=== PATIENT | male | born 1945 | race Caucasian/White ===

== ENCOUNTER 2019-05-02 05:18 | Inpatient (IN) ==
--- NOTE | 2019-04-03 08:34 | PAT Medication Instructions ---
Medication Instructions Date of Service April 03, 2019 Home Medications albuterol sulfate 1 puff INHALATION Q6H PRN celecoxib 200 mg PO BID cholecalciferol (vitamin D3) 4,000 unit PO BID ezetimibe 10 mg PO QAM finasteride 5 mg PO QPM lactobacillus combination no.4 3,000 mmu cells PO QPM loratadine [Claritin] 10 mg PO QPM ranitidine HCl 150 mg PO BID ASK your surgeon for instructions celecoxib 200 mg PO BID Take morning of surgery With a small sip of water, OTHERWISE NOTHING TO EAT OR DRINK AFTER MIDNIGHT: albuterol sulfate 1 puff INHALATION Q6H PRN (use if needed; please bring with you to hospital day of surgery if possible) ezetimibe 10 mg PO QAM Take evening before surgery albuterol sulfate 1 puff INHALATION Q6H PRN (if needed) cholecalciferol (vitamin D3) 4,000 unit PO BID finasteride 5 mg PO QPM lactobacillus combination no.4 3,000 mmu cells PO QPM loratadine [Claritin] 10 mg PO QPM ranitidine HCl 150 mg PO BID Other Notes If you have any questions please call us at [phone] or [phone] or [phone] or [phone]
--- NOTE | 2019-04-03 11:44 | Anesthesiology Consultation ---
Date of Service April 03, 2019 Assessment & Plan (1) Encounter for pre-operative examination: - PCP: 04/13/19: "Pt medically cleared for surgery. Monitor for any signs of recurrent c. diff." Chart Review Chart Review: Acceptable Risk for Surgery and Patient seen in Pre Admission Testing Teaching & Discussion Pre-Anesthesia Teaching/Discussion Notes: Instructed NPO after midnight before surgery,except medications with 15 cc of water. Medication instructions provided according to the PAT guidelines. History Surgery Operation Date: 05/02/19 07:15 Proposed Procedures p Right Anterior Approach Total Hip Arthroplasty - Renny Leslie DO Height/Weight Height: 5 ft 11 in Weight: 105.6 kg Allergies Allergy/AdvReac Type Severity Reaction Status Date / Time Sulfa (Sulfonamide Allergy Severe HYPOTENSION Verified 04/03/19 11:38 Antibiotics) AND HIVES Medications Home Medications Medication Instructions Recorded Confirmed Last Taken albuterol sulfate 1 puff INHALATION Q6H PRN 03/27/19 03/27/19 Unknown celecoxib 200 mg PO BID 03/27/19 03/27/19 Unknown cholecalciferol (vitamin D3) 4,000 unit PO BID 03/27/19 03/27/19 Unknown [Vitamin D3] ezetimibe 10 mg PO QAM 03/27/19 03/27/19 Unknown finasteride 5 mg PO QPM 03/27/19 03/27/19 Unknown lactobacillus combination no.4 3,000 mmu cells PO QPM 03/27/19 03/27/19 Unknown [Probiotic] loratadine [Claritin] 10 mg PO QPM 03/27/19 03/27/19 Unknown ranitidine HCl 150 mg PO BID 03/27/19 03/27/19 Unknown Past Medical History Medical History BPH (benign prostatic hyperplasia) DJD (degenerative joint disease) Diverticular disease Hearing deficit History of kidney stones Hyperlipidemia 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; NO RECENT ISSUES- INHALER PRN Exercise / Class Metabolic Activity III < 4 Walking/Shop/Light housework Past Surgical History Surgical History History of cardiac cath 2008= NO STENTS History of cataract surgery BOTH EYES History of cholecystectomy History of left hip replacement Hx of cystoscopy Past Anesthesia History No Hx of Anesthesia Complications and No Family Hx of Anesthesia Complications History of PONV No Hx of Motion Sickness and History of PONV (FELT NARCOTIC RELATED PER PATIENT) Social History Smoking Status: Former smoker Do You Dip or Chew Tobacco: No Smoking End Date: QUIT 1993; HX 1PPD X 15 YEARS Hx Alcohol Use: No Hx Substance Use: No Review of Systems Patient reports low back pain/hip pain; no LE radiation. Patient denies chest pain, shortness of breath, cough, wheezing, palpitations. Physical Exam Vital Signs VITALS BP 124/85 P 89 TEMP 98.4 SP02 94%RA RESP 18 PHYSICAL Full neck and c-spine range of motion. Full TMJ range of motion. TMD 3.5 finger breaths Mallampati Score 3 Dentition: lower two front teeth and several sides/molars missing Lungs: very mild expiratory wheezes in upper lungs Cardiac: regular rate and rhythm, no murmurs noted Spine: normal Carotid arteries: negative bruit Extremities: no edema Short turpin-- advised to trim (patient voiced understanding) Testing Electrocardiogram Date: 04/03/19 NSR at 83bpm. NS STA. Chest X-Ray Date: 04/03/19 Findings: + NAD Calcified mediastinal and hilar lymph nodes likely on a postinflammatory basis. No active disease in the chest. Laboratory Results 04/03/19 11:51 04/03/19 11:51 PT 10.6 Seconds (9.0-12.0) 04/03/19 11:51 INR 1.0 (0.9-1.1) 04/03/19 11:51 APTT 26.7 Seconds (21.0-31.0) 04/03/19 11:51 5.6 % (4.5-5.6) 04/03/19 11:51 Yellow 04/03/19 Unknown Clear (Clear) 04/03/19 Unknown 5.0 (4.5-7.5) 04/03/19 Unknown Ur Specific [place] 1.023 (1.000-1.030) 04/03/19 Unknown Trace (Negative) H 04/03/19 Unknown Negative (Negative) 04/03/19 Unknown Negative (Negative) 04/03/19 Unknown Negative (Negative) 04/03/19 Unknown Ur Leukocyte Esterase Negative (Negative) 04/03/19 Unknown 1-5 /hpf (0-5) 04/03/19 Unknown 5-10 /hpf (0-4) H 04/03/19 Unknown U Hyaline Cast (Auto) 1-5 /lpf (0-5) 04/03/19 Unknown U Epithel Cells (Auto) 10-20 /lpf (0-5) H 04/03/19 Unknown Negative (Negative) 04/03/19 Unknown Blood Type A Positive 04/03/19 11:51 Antibody Screen NEGATIVE 04/03/19 11:51 Due to header error, following labs header labels were missin04/03/19 HGBA1C 5.6% UA negative bacteria
--- NOTE | 2019-04-03 12:31 | XRay Report ---
XR chest Pre-admission PA/Lat CLINICAL HISTORY: Preoperative chest COMPARISON STUDY: No previous studies for comparison. FINDINGS: The heart is normal in size. There is no failure. There are no pleural effusions. There is no focal pulmonary consolidation. There are extensive eggshell calcified mediastinal and hilar lymph nodes.[ IMPRESSION: 1. Calcified mediastinal and hilar lymph nodes likely on a postinflammatory basis 2. No active disease in the chest. Electronically signed by: Héctor Fuentes M.D. 04/03/2019 12:30 PM
[2019-04-03 12:51] LABS: Basophils # (auto) 0.02 K/uL (0-0.2); Basophils % (auto) 0.3 %; Eosinophils # (auto) 0.37 K/uL (0-0.5); Hematocrit (blood only) 44.4 % (42-52); Hemoglobin 15.3 g/dL (14.0-18.0); Immature Granulocytes # (auto) 0.02 K/uL (0.00-0.02); Immature Granulocytes % (auto) 0.3 %; Lymphocytes # (auto) 1.53 K/uL (1.2-3.4); Lymphocytes % (auto) 24.8 %; Mean Corpuscular Hgb Conc 34.5 g/dL (32-36); Mean Corpuscular Volume 90.1 fL (80-100); Mean Platelet Volume 9.4 fL (7.4-10.4); Monocytes # (auto) 0.87 K/uL (0.11-0.59); Monocytes % (auto) 14.1 %; Neutrophils # (auto) 3.35 K/uL (1.4-6.5); Neutrophils % (auto) 54.5 %; Platelet Count 205 K/uL (130-400); RDW Coefficient of Variation 13.5 % (11.5-14.5); RDW Standard Deviation 44.2 fL (36.4-46.3); Red Blood Count 4.93 M/uL (4.7-6.1); White Blood Count 6.16 K/uL (4.8-10.8)
[2019-04-03 12:54] LABS: Appearance Urine Clear (Clear); Bacteria Urine Automated Negative (Negative); Bilirubin Urine Negative (Negative); Blood Urine 2+ (Negative); Color Urine Yellow; Glucose Urine UA Negative (Negative); Ketones Urine Negative (Negative); Leukocyte Esterase Urine Negative (Negative); Nitrite Urine Negative (Negative); Protein Urine Trace (Negative); Specific Gravity Urine 1.023 (1.000-1.030); Urobilinogen Urine Negative (Negative)
[2019-04-03 13:01] LABS: Partial Thromboplastin Time 26.7 Seconds (21.0-31.0); Prothrombin Time 10.6 Seconds (9.0-12.0)
[2019-04-03 13:12] LABS: Estimated Average Glucose 114 mg/dl; Hemoglobin A1C 5.6 % (4.5-5.6)
[2019-04-03 14:14] LABS: Albumin Level 3.6 gm/dl (3.4-5.0); BUN Creatinine Ratio 11.8 (10-20); Calcium 9.5 mg/dl (8.5-10.1); Creatinine Clr Calc Pharmacy 76.2 ml/min; Est GFR (African American) 77.9; Est GFR (Non-African American) 67.2; Potassium 4.1 mmol/L (3.5-5.1)
--- NOTE | 2019-04-30 17:13 | History & Physical Report ---
Date of Service April 30, 2019 Assessment & Plan (1) Degenerative joint disease of right hip: I have indicated the patient for right anterior total hip replacement. The risks, benefits and complications of surgery were explained to the patient which include but not limited to infection, acute blood loss, DVT/PE, injury to nerves, vessels, bone, soft tissue, arthrofibrosis, chronic pain, failure of the prosthesis, hip dislocation, leg length discrepancy, need for additional surgery, cardiac and pulmonary events and . The patient wished to proceed with surgery and informed consent was obtained at this time. We will plan for ASA BID post-operatively for DVT prophylaxis. Upon discharge the patient will be discharged home with home health services. Appropriate clearances by PCP were obtained. History of Present Illness Chief Complaint: Right hip pain/DJD Primary Care Provider: CHRYSTAL PCP The patient is a 73 year old male who presents with complaints of severe right hip pain and DJD. The patient has failed outpatient conservative treatments to this point which included NSAIDs, corticosteroid injection, home exercise/walking program. The patient's pain and limited function have progressed to the point where they severely hinder their activities of daily living and they no longer tolerate exercise programs. They are requesting to proceed with total hip replacement surgery. Allergies Allergy/AdvReac Type Severity Reaction Status Date / Time Sulfa (Sulfonamide Allergy Severe HYPOTENSION Verified 05/02/19 05:50 Antibiotics) AND HIVES Home Medications Home Medications Medication Instructions Recorded Confirmed Type albuterol sulfate 1 puff INHALATION Q6H PRN 03/27/19 05/02/19 History celecoxib 200 mg PO BID 03/27/19 05/02/19 History cholecalciferol (vitamin D3) 4,000 unit PO BID 03/27/19 05/02/19 History [Vitamin D3] ezetimibe 10 mg PO QAM 03/27/19 05/02/19 History finasteride 5 mg PO QPM 03/27/19 05/02/19 History lactobacillus combination no.4 3,000 mmu cells PO QPM 03/27/19 05/02/19 History [Probiotic] loratadine [Claritin] 10 mg PO QPM 03/27/19 05/02/19 History ranitidine HCl 150 mg PO BID 03/27/19 05/02/19 History Past Med/Surg History Medical History BPH (benign prostatic hyperplasia) DJD (degenerative joint disease) Diverticular disease Hearing deficit History of kidney stones Hyperlipidemia 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; NO RECENT ISSUES- INHALER PRN Surgical History History of cardiac cath 2009= NO STENTS History of cataract surgery BOTH EYES History of cholecystectomy History of left hip replacement Hx of cystoscopy Social History Preferred Language: Afghan Communication Ability: Effective Beliefs That Will Affect Care: None Current Living Situation: Significant Other Feels Safe at Home: Yes Safety Concerns: Feels Safe At This Time Smoking Status: Former smoker Do You Dip or Chew Tobacco: No Smoking End Date: QUIT 1993; HX 1PPD X 15 YEARS Second Hand Exposure: No Hx Alcohol Use: No Hx Substance Use: No Review of Systems Review of Systems: All systems reviewed & are unremarkable except as noted in HPI & below Constitutional: as per Subjective / HPI Physical Exam Physical Exam: RLE NVSI +EHL/FHL/TA/GS SILT grossly, +2 DP pulse, compartments soft NT, limited painful ROM, antalgic gait. Constitutional: WD/WN, vitals as above Eyes: PERRL, conjunctivae normal, anicteric sclerae ENMT: external ear and nose normal, oropharynx normal Neck: trachea midline, no thyromegaly Respiratory: normal respiratory effort, lungs clear to auscultation Cardiovascular: RRR, no murmur, no edema Gastrointestinal (Abdomen): normal bowel sounds, soft, nontender, no hepatosplenomegaly Musculoskeletal: no cyanosis or clubbing, extremities motor strength 5/5 Skin: no rashes, warm and dry Neurologic: patellar DTR's 2+ bilat, sensation intact Psychiatric: A+Ox3, euthymic affect Lymphatic: no cervical or axillary lymphadenopathy Results & Data Diagnostic Findings Multiple views of the hip demonstrates severe DJD with complete loss of the joint space. +osteophytes, +sclerosis, +subchondral cysts.
[2019-05-02] MEDS ORDERED: CEFAZOLIN 2000MG 2,000 MG/15 ML SYR IV SCH (06:00)
[2019-05-02] MEDS ORDERED: dexAMETHasone 4 MG TAB PO SCH (06:00)
[2019-05-02] MEDS ORDERED: FAMOTIDINE 20 MG TAB PO SCH (06:00)
[2019-05-02] MEDS ORDERED: ACETAMINOPHEN 500 MG TAB PO SCH (06:00)
[2019-05-02] MEDS ORDERED: TRANEXAMIC ACID 1,000 MG **IV Pre-op IV SCH (06:00)
[2019-05-02] MEDS ORDERED: GABAPENTIN 300 MG PO SCH (06:00)
[2019-05-02] MEDS ORDERED: ROPIVACAINE 0.5% HCL/PF 150 MG, BUPIVACAINE 0.5% MPF 30 ML, EPINEPHrine 30MG/30ML (OR U... INFIL SCH (06:00)
[2019-05-02] MEDS ORDERED: LR 500ML BOLUS, THEN 15ML/HR IV SCH (06:00)
[2019-05-02] MEDS ORDERED: METOCLOPRAMIDE HCL 10 MG TABLET PO SCH (06:00)
[2019-05-02] MEDS ORDERED: BUPIVACAINE 0.5 % 5 MG/1 ML PF 10ML VIAL ONE (06:28)
[2019-05-02] MEDS ORDERED: MIDAZOLAM HCL 1 MG/ML 2ML VIAL ONE (06:28)
[2019-05-02] MEDS ORDERED: KETAMINE HCL INJ 50 MG/ML 10 ML VIAL ONE (06:29)
[2019-05-02] MEDS ORDERED: TRANEXAMIC ACID 1,000 MG **IV Intra-op IV SCH (06:30)
[2019-05-02] MEDS ORDERED: ONDANSETRON INJ 2 MG/ML 2 ML VIAL ONE (06:39)
[2019-05-02] MEDS ORDERED: PROPOFOL IV EMULSION 10 MG/ML 20 ML VIAL IV ONE ×5 (06:39→10:12)
[2019-05-02] MEDS ORDERED: DEXAMETHASONE SOD INJ 4 MG/ML VIAL ONE (06:39)
[2019-05-02] MEDS ORDERED: LIDOCAINE HCL 2% 2 ML VIAL/AMP(20MG/ML) INFIL ONE (06:39)
[2019-05-02] MEDS ORDERED: GLYCOPYRROLATE 0.2 MG/ML VIAL ONE (06:39)
[2019-05-02] MEDS ORDERED: ORTHO JOINT ANESTHETIC ONE (07:00)
[2019-05-02] MEDS ORDERED: BACITRACIN INJ 50,000 UNIT VIAL ONE (07:00)
[2019-05-02] MEDS ORDERED: POVIDONE-IODINE OP SOLN 30 ML BTL ONE (07:00)
--- NOTE | 2019-05-02 07:01 | History & Physical Bridge Note ---
Date of Service May 02, 2019 History & Physical Bridge Note I have examined the patient, reviewed the History & Physical and in the interval since the performance of the History & Physical I have noted the following changes of clinical significance: no changes noted
[2019-05-02] MEDS ORDERED: ePHEDrine sulfate 50 MG/ML AMP IV PRN (07:50)
[2019-05-02] MEDS ORDERED: ATROPINE SULFATE 0.1 MG/ML 10ML SYR IV PRN (07:50)
[2019-05-02] MEDS ORDERED: HYDROmorphone INJ 1 MG/ML SYRINGE IV PRN (07:50)
--- NOTE | 2019-05-02 09:57 | Post Operative Brief Note ---
Immediate Post Op Note v1 Date of Surgery May 02, 2019 Pre & Post Diagnosis Operation Date: 05/02/19 07:40 Pre-Op Diagnosis: Unilateral Primary Osteoarthritis, Right Hip Post-Op Diagnosis: Unilateral Primary Osteoarthritis, Right Hip Procedure Operation Date: 05/02/19 07:40 Actual Procedures p Right Anterior Approach Total Hip Arthroplasty(Right) - Renny Leslie DO Surgeon Renny Leslie DO Business Development Officer Elbert Vicente Estimated Blood Loss 75 Findings Consistent with Post-Op Diagnosis Fluids 1800 cc LR Specimens femoral head Anesthesia Type Spinal MAC Disposition Disposition: Recovery Room Overlapping Procedure I was present for: the critical portions of procedure. I was immediately available: during the entire case. Back up surgeon: was not required during procedure.
--- NOTE | 2019-05-02 10:12 | Operative Report ---
Post Operative Report Pre & Post Diagnosis Operation Date: 05/02/19 07:40 Pre-Op Diagnosis: Unilateral Primary Osteoarthritis, Right Hip Post-Op Diagnosis: Unilateral Primary Osteoarthritis, Right Hip Procedure Operation Date: 05/02/19 07:40 Actual Procedures p Right Anterior Approach Total Hip Arthroplasty(Right) - Renny Leslie DO Surgeon Renny Leslie DO Psychologist Educational Elbert Vicente Estimated Blood Loss 75 Findings Consistent with Post-Op Diagnosis Fluids 1800 cc LR Specimens Femoral head Anesthesia Type Spinal MAC Complications none Disposition Disposition: Recovery Room Indications The patient is a 73-year-old male who presents with severe progressive right hip DJD who has failed outpatient conservative treatments. I indicated the patient for a anterior total hip replacement and the risks and benefits were explained in detail which include but not limited to infection, bleeding, blood clot, damage to surrounding bone, nerves, vessels, soft tissue, hip dislocation, failure of the prosthesis, leg length discrepancy, need for additional surgery and . The patient agreed to proceed with replacement of the hip and informed consent was obtained. Appropriate clearances were obtained. Description of Procedure COMPONENTS USED: [employer] hip system: Acetabulum size 54, femur size 9 high offset, femoral head 36+4, liner 3654, acetabular screw 251. DESCRIPTION OF PROCEDURE: Following satisfactory spinal anesthesia, the patient was placed supine on the OR table. The left leg was placed in the well leg young and the right leg in the traction device. The right leg was prepared with ChloraPrep and draped sterilely. A surgical timeout was performed, patient identified and site jean paul verified. Appropriate antibiotics were given. A standard anterior approach in the interval between the sartorius and tensor muscles was performed. Dissection was carried down through subcutaneous tissues. Electrocautery was utilized for hemostasis. Circumflex femoral vessels were identified, tied and ligated. The anterior capsular fat pad was removed and the capsulotomy was performed revealing the arthritic femoral neck and head. A femoral neck cut was made with reciprocating saw and the bone fragments removed. The acetabular self-retraining retractor was placed. Acetabular reaming was completed under fluoroscopic guidance, a 54 shell was impacted into an anatomic position and secured with a dome screw. Local anesthetic was placed and following irrigation, the polyethylene liner was placed. The femur was placed into position of external rotation, extension and adduction. Femoral canal was prepared up to the size 9 high offset. Trial reduction with a +4 neck length head showed good soft tissue tension, leg lengths restored, and good fit and fill of the proximal canal using fluoroscopic landmarks. The hip was dislocated. The trial component was removed. The final implant was placed. The hip was irrigated with sterile saline solution and reduced. A Betadine soak was performed. After 3 minutes, the hip was once more irrigated with copious sterile saline solution with bacitracin. Karen-incisional soft tissue was injected utilizing [place] [employer] which includes a combination of Ropivicaine 0.5% 150mg, Bupivicaine 0.5%/Epinephrine 1:200,000 30ml, Toradol 30mg, Dexamethasone 4mg, Ketamine 10mg, Clonidine 100mcg and NSS 30ml solution. The capsule was then closed with 1-0 Vicryl interrupted figure of eight sutures. The fascia was closed with a running suture of #1 Vicryl, the subcutaneous tissues with 2-0 Vicryl and the skin with a running subcuticular stitch of 3-0 V-Loc. Dermabond prineo and a dry dressing were applied. The patient tolerated the procedure well and was transported to PACU in stable condition. Due to the complex nature of the procedure, the entire surgery was performed with the operational assistance of Elbert Vicente PA-C. The resident assistant, under direct supervision, was involved in the actual performance of all aspects of the surgical procedure including patient positioning, hemostasis, tissue retraction, instrument management and wound closure. I attest to the content of the Intraoperative Record and any orders documented therein. Any exceptions are noted below.
--- NOTE | 2019-05-02 10:52 | Fluoroscopy Report ---
FL hip RT 1V HISTORY: 73 years-old Male RT ANTERIOR HIP chronic right hip pain COMPARISON: None available TECHNIQUE: 2 spot fluoroscopic images of the pelvis right hip were obtained utilizing 1 minute and 14 .1 seconds of fluoroscopy time FINDINGS: Bilateral hip total joint arthroplasties are noted which demonstrates satisfactory alignment on these images. No acute fracture or retained foreign body identified. Soft tissues appear unremarkable. IMPRESSION: Fluoroscopic assistance as above. Please see operative report for further details. The above report was generated using voice recognition software. It may contain grammatical, syntax o r spelling errors. Electronically signed by: Karl Hayes M.D. 05/02/2019 10:51 AM
--- NOTE | 2019-05-02 11:17 | XRay Report ---
XR hip 1V RT w pelvis HISTORY: 73 years-old Male IN PACU - A/P PELVIS and LATERAL HIP right hip total joint arthroplasty. History of degenerative joint disease COMPARISON: Fluoroscopic images of the right hip of same day TECHNIQUE: AP view of the pelvis with crosstable lateral view of the right hip FINDINGS: Bilateral hip total joint arthroplasties. Satisfactory alignment without acute fracture or retained f oreign body. Expected postsurgical soft tissue swelling and deep tissue air with surgical drainage ca theter about the right hip. IMPRESSION: Right hip total joint arthroplasty with satisfactory alignment. The above report was generated using voice recognition software. It may contain grammatical, syntax o r spelling errors. Electronically signed by: Karl Hayes M.D. 05/02/2019 11:16 AM
[2019-05-02] MEDS ORDERED: BISACODYL 10 MG SUPP PR PRN (11:59)
[2019-05-02] MEDS ORDERED: ALBUTEROL HFA 8 GM INHALER INH PRN (11:59)
[2019-05-02] MEDS ORDERED: ONDANSETRON INJ 2 MG/ML 2 ML VIAL IV PRN (11:59)
[2019-05-02] MEDS ORDERED: METOCLOPRAMIDE HCL INJ 5 MG/ML 2 ML VIAL IV PRN (11:59)
[2019-05-02] MEDS ORDERED: MAGNESIUM HYDROXIDE SUSP 30 ML UDC PO PRN (11:59)
[2019-05-02] MEDS ORDERED: NALOXONE HCL 0.4 MG/1 ML VIAL/CARP IV PRN (11:59)
[2019-05-02] MEDS: SODIUM CHLORIDE 0.9% 1000ML 1,000 ML IV SCH (12:22)
--- NOTE | 2019-05-02 13:14 | Anesthesiology Progress Note ---
Date of Service May 02, 2019 Anesthesia Post Procedure Vital Signs Vital Signs: Temp Pulse Pulse Resp BP BP Pulse Ox 05/02/19 12:29 36.5 C 68 20 130/77 97 05/02/19 12:15 36.4 C L 70 16 136/89 100 05/02/19 11:48 36.4 C L 68 16 122/80 98 05/02/19 11:30 36.3 C L 71 18 119/81 98 05/02/19 11:20 71 17 117/83 98 05/02/19 11:10 78 18 115/71 98 05/02/19 11:00 79 18 117/82 95 05/02/19 10:50 74 20 111/72 96 05/02/19 10:40 78 19 117/80 97 05/02/19 10:31 36.1 C L 83 21 106/78 98 05/02/19 05:55 36.7 C 80 20 147/92 H 96 Pain Intensity Right Hip: Pain Intensity: 0 Transfer of Care Handoff Completed per policy Notes Mental Status: alert / awake / arousable Patient Amnestic to Procedure: Yes Nausea / Vomiting: adequately controlled Pain: adequately controlled Airway Patency, RR, SpO2: stable & adequate BP & HR: stable & adequate Hydration State: stable & adequate Anesthetic Complications: no major complications apparent and Pt Satisfied with anesthetic care
[2019-05-02] MEDS: ACETAMINOPHEN 500 MG TAB PO SCH ×2 (14:05→21:31)
[2019-05-02] MEDS: KETOROLAC TROMETHAMINE 15 MG/ML VIAL IV SCH ×2 (14:05→20:54)
[2019-05-02] MEDS: OXYCODONE HCL IR 5 MG TAB (IMMEDIATE RELEASE) PO PRN ×2 (14:07→19:43)
[2019-05-02] MEDS: CEFAZOLIN 2000MG 2,000 MG/15 ML SYR IV SCH ×2 (16:13→23:54)
--- NOTE | 2019-05-02 19:16 | Orthopedic Progress Note ---
Date of Service May 02, 2019 Assessment & Plan (1) Degenerative joint disease of right hip: s/p right anterior RAOUL -ancef x 24 -DVT ppx: SCDs, TEDs, ASA BID -WBAT RLE -PT/OT -PO XR demonstrates well aligned well fixed prosthesis -DC planning Subjective Post Operative Progress Note Patient seen sitting up in bed, comfortable, denies complaints, pain well controlled, no acute issues. Review of Systems Review of Systems: All systems reviewed & are unremarkable except as noted in HPI & below Constitutional: as per Subjective / HPI Physical Exam Physical Exam: RLE NVSI +EHL/FHL/TA/GS SILT grossly, +2 DP pulse, compartments soft NT, dressing cdi. Constitutional: WD/WN, vitals as above Results & Data Vital Signs (Past 12 Hours) Vital Signs Temp Pulse Pulse Resp BP Pulse Ox 05/02/19 14:41 36.6 C 78 20 147/87 H 98 05/02/19 13:29 36.5 C 78 20 137/88 97 05/02/19 12:29 36.5 C 68 20 130/77 97 05/02/19 12:15 36.4 C L 70 16 136/89 100 05/02/19 11:48 36.4 C L 68 16 122/80 98 05/02/19 11:30 36.3 C L 71 18 119/81 98 05/02/19 11:20 71 17 117/83 98 05/02/19 11:10 78 18 115/71 98 05/02/19 11:00 79 18 117/82 95 05/02/19 10:50 74 20 111/72 96 05/02/19 10:40 78 19 117/80 97 05/02/19 10:31 36.1 C L 83 21 106/78 98
--- NOTE | 2019-05-02 19:46 | XRay Report ---
XR hip 1V RT w pelvis CLINICAL HISTORY: Postoperative evaluation. COMPARISON: Right hip radiographs performed earlier today. FINDINGS: Alignment of the total right hip arthroplasty is anatomic. There is no periprosthetic frac ture or unexpected radiopaque foreign body. There is an acetabular screw. Left hip arthroplasty appea rs unremarkable as well. IMPRESSION: Expected findings following total right hip arthroplasty. Electronically signed by: Jose Andrea M.D. 05/02/2019 7:44 PM
[2019-05-02] MEDS: DOCUSATE SODIUM 100 MG CAP PO SCH (20:54)
[2019-05-02] MEDS ORDERED: FINASTERIDE 5 MG TAB PO SCH (21:00)
[2019-05-02] MEDS ORDERED: SENNA 8.6 MG TAB PO SCH (21:00)
[2019-05-03] MEDS: KETOROLAC TROMETHAMINE 15 MG/ML VIAL IV SCH ×2 (02:34→07:39)
[2019-05-03] MEDS: SODIUM CHLORIDE 0.9% 1000ML 1,000 ML IV SCH (03:04)
[2019-05-03] MEDS: ACETAMINOPHEN 500 MG TAB PO SCH (05:49)
[2019-05-03 06:30] LABS: Hematocrit (blood only) 35.4 % (42-52); Hemoglobin 12.1 g/dL (14.0-18.0); Immature Granulocytes # (auto) 0.03 K/uL (0.00-0.02); Immature Granulocytes % (auto) 0.2 %; Lymphocytes # (auto) 0.87 K/uL (1.2-3.4); Mean Corpuscular Hgb Conc 34.2 g/dL (32-36); Mean Corpuscular Volume 88.9 fL (80-100); Mean Platelet Volume 9.1 fL (7.4-10.4); Monocytes # (auto) 0.77 K/uL (0.11-0.59); Monocytes % (auto) 6.2 %; Neutrophils # (auto) 10.73 K/uL (1.4-6.5); Neutrophils % (auto) 86.6 %; Platelet Count 202 K/uL (130-400); RDW Coefficient of Variation 13.2 % (11.5-14.5); RDW Standard Deviation 42.6 fL (36.4-46.3); Red Blood Count 3.98 M/uL (4.7-6.1)
[2019-05-03 07:00] LABS: BUN Creatinine Ratio 18.5 (10-20); Creatinine Clr Calc Pharmacy 67.6 ml/min; Est GFR (Non-African American) 58.7; Potassium 4.3 mmol/L (3.5-5.1)
[2019-05-03] MEDS: DOCUSATE SODIUM 100 MG CAP PO SCH (08:31)
[2019-05-03] MEDS: OXYCODONE HCL IR 5 MG TAB (IMMEDIATE RELEASE) PO PRN (08:33)
[2019-05-03] MEDS ORDERED: EZETIMIBE 10 MG TABLET PO SCH (09:00)
[2019-05-03] MEDS ORDERED: ASPIRIN 325 MG ECTAB PO SCH (09:00)
[2019-05-03] MEDS ORDERED: MULTIVITAMIN TAB PO SCH (09:00)
--- NOTE | 2019-05-03 10:11 | Orthopedic Progress Note ---
Date of Service May 03, 2019 Assessment & Plan (1) Degenerative joint disease of right hip: s/p right anterior RAOUL POD#1 -ancef x 24 -DVT ppx: SCDs, TEDs, ASA BID -WBAT RLE -PT/OT -am labs - hgb 12.1 -PO XR demonstrates well aligned well fixed prosthesis -DC planning home with HH today Subjective Post Operative Progress Note Patient seen sitting in chair at bedside, comfortable, denies complaints, pain well controlled, no acute issues. Review of Systems Review of Systems: All systems reviewed & are unremarkable except as noted in HPI & below Constitutional: as per Subjective / HPI Physical Exam Physical Exam: RLE NVSI +EHL/FHL/TA/GS SILT grossly, +2 DP pulse, compartments soft NT, dressing cdi. Results & Data Vital Signs (Past 12 Hours) Vital Signs Temp Pulse Pulse Resp BP Pulse Ox 05/03/19 08:00 36.6 C 74 18 116/72 95 05/03/19 03:13 36.5 C 78 16 104/63 95 05/02/19 23:19 36.6 C 85 16 116/71 95
[2019-05-03] MEDS ORDERED: CeleBREX 200 MG CAP PO SCH (21:00)
--- NOTE | 2019-05-04 10:36 | Discharge Summary ---
Date of Service May 04, 2019 Admission HPI Per Admitting Provider The patient is a 73 year old male who presents with complaints of severe right hip pain and DJD. The patient has failed outpatient conservative treatments to this point which included NSAIDs, corticosteroid injection, home exercise/walking program. The patient's pain and limited function have progressed to the point where they severely hinder their activities of daily living and they no longer tolerate exercise programs. They are requesting to proceed with total hip replacement surgery. Principal Diagnosis Right anterior total hip replacement Discharge Exam RLE NVSI +EHL/FHL/TA/GS SILT grossly, +2 DP pulse, compartments soft NT, dressing cdi. Constitutional WD/WN, vitals as above Discharge Data Allergies Allergy/AdvReac Type Severity Reaction Status Date / Time Sulfa (Sulfonamide Allergy Severe HYPOTENSION Verified 05/02/19 05:50 Antibiotics) AND HIVES Consultations 05/03/19 08:00 Consult Case Management - Discharge Planning Routine Procedures Performed Operation Date: 05/02/19 07:40 Actual Procedures p Right Anterior Approach Total Hip Arthroplasty(Right) - Renny Leslie DO Ordered Studies 05/02/19 12:40 FL fluoroscopy <1hr Routine FL hip RT 1V Routine Hospital Course (1) Degenerative joint disease of right hip: The patient is a 73 -year-old male who presents with long standing history of severe right hip DJD and failed outpatient conservative treatments including NSAIDs, bracing, injections and home walking/exercise program. The patient's symptoms have progressed to the point where it has been difficult to perform even normal activities of daily living. I indicated the patient for a right anterior total hip arthroplasty, the risks, benefits and complications of the procedure include but not limited to infection, bleeding, damage to bone, nerves, vessels, surrounding soft tissue, may develop blood clots, loss of function, leg length discrepancy, dislocation, failure of the components, loosening of the components, the need for additional surgery and . The patient wished to proceed with surgery at this time and informed consent was obtained. Hospital Course: On 05/02/19 the patient was taken to the operating room, adequate anesthesia administered and underwent a right anterior total hip arthroplasty. The patient tolerated the procedure well and was taken to the PACU in stable condition. Post-operatively the patient was started on a DVT ppx medication and given appropriate IV antibiotics. Consults were placed to physical therapy, occupat ional therapy and case management. On POD#1, the patient did well overnight and their pain was well controlled. Labs were drawn and the Hgb was 12.1. The patient progressed well with PT. Dressings were changed at this time and the incision was clean, dry and intact. The patients hospital stay was relatively uneventful and they were deemed stable by the orthopedic team and consultants to be discharged home with HH on 05/03/19. Discharge Instructions: Upon discharge the patient may weight bear as tolerates through their operative extremity. They were instructed to keep the incision clean and dry at all times. The patient may shower but should not submerge the incision, avoid bathing, pools and hot tubes. The patient was given a script for pain medication and should take as instructed. The patient was given a script for DVT ppx 325mg ASA BID and should take as directed. The patient was instructed to not drive or travel for long distances until cleared to do so. If the madonna ent develops any symptoms of fevers, chills, nausea, vomiting, increased redness, swelling, pain or drainage from the surgical site, they should notify the office and/or proceed to the nearest emergency room. The patient should follow up in 10-14 days after surgery for their routine post-operative follow-up appointment and should call the office to confirm the date and time. s/p right anterior RAOUL POD#1 -ancef x 24 -DVT ppx: SCDs, TEDs, ASA BID -WBAT RLE -PT/OT -am labs - hgb 12.1 -PO XR demonstrates well aligned well fixed prosthesis -DC planning home with HH today Total Time Total Time Spent Total Time Spent (In Minutes): >60 minutes Total Time Includes: Examination of the Patient, Discharge Planning, Medication Reconciliation and Communication With Other Providers Discharge Plan Discharge Items Patient Disposition: Home - Home Health Services Reason For Visit: Unilateral Primary Osteoarthritis, Right Hip Discharge Diagnosis: Right anterior total hip replacement Condition: Good Discharge Goals: Decrease discomfort, Improve function, Increase independence and Therapeutic intervention Activity: Per 'Additional Instructions' section Lifting: Wait until after follow-up appointment Bathing Comment: No bathing, pools or hot tubs Sexual Activity: Wait until after follow-up appointment Exercise/Sports: Wait until after follow-up appointment Driving/Machine Use Comment: No driving till cleared by your surgeon Weightbearing: Right weightbearing Non-emergency contact: Primary Care Provider and Surgeon Call non-emergency contact if: you have any medication questions, your symptoms worsen, your pain is not controlled, your pain is worsening, your pain is unusual for you, your pain is concerning for you, you have a fever, your temperature is above 101, your wound has increased redness, your wound has increased drainage and your wound pain has increased Follow-up/Referrals: PCP,NO [Primary Care Provider] - Diet: Regular Addtl Provider Instructions: ACTIVITY RECOMMENDATIONS: SELF CARE INSTRUCTIONS AFTER TOTAL HIP REPLACEMENT : Direct Anterior Approach Until the incision and soft tissues around your hip have healed, there is a possibility that the hip prosthesis could dislocate. A. Hip flexion ( Up & Down out of chair or steps ) may be difficult. This is normal. B. Numbness in front of the thigh is also normal for a few weeks. C. Use hand rails when walking on stairs. D. Wear low heeled shoes with non-slip soles. E. Be sure that your floors are free of things that could trip you - throw rugs, electrical cords, small objects. Avoid wet and waxed floors, especially with crutches and canes. F. Try to walk several times a day with rest periods between. G. Continue with all the exercises taught to you in the hospital. Again, make walking a part of your daily routine. SPECIAL CARE INSTRUCTIONS: VERY IMPORTANT TO READ AND REVIEW A. You may still be at risk for phlebitis and blood clots. 1. Wear surgical stockings (LOU hose) for 2 weeks after surgery to improve circulation and reduce swelling. 2. Take Aspirin 325mg twice daily for 4 weeks or as directed by your doctor. This is your blood thinner. 3. High risk patients may be prescribed a stronger blood thinner if necessary. 4. If you are on Coumadin normally, your family doctor/pc tech should monitor your blood work. Expect a phone call the day of or the day after bloodwork is drawn to adjust your dosage. B. You must take antibiotics before having dental work, bladder, bowel and other surgery. Your doctor will provide you with a permanent card to carry describing precautions. C. Call [facility] if you have a fever, redness or swelling around the incision, cloudy drainage from incision, or sudden increase in pain in your hip, not relieved by your regular pain medication. D. Please call the office at if you have any concerns or questions about your operation or recovery. * YOU MAY SHOWER, NO TUB BATHS UNTIL CLEARED BY YOUR DOCTOR. - Keep an extra close eye on the top portion of your incision. Be sure to keep clean & dry. * WEAR LOU HOSE 20 HOURS PER DAY FOR 2 WEEKS. * YOU MAY PROGRESS FROM A WALKER, TO A CANE, TO INDEPENDENT AT YOUR OWN PACE. * MOST PATIENTS WILL HAVE HOME NURSING FOR THERAPY. IF YOU DECIDE TO DO OUTPATIENT PHYSICAL THERAPY, PLEASE SCHEDULE THIS 3 TIMES PER WEEK. * DERMABOND Prineo- This is a mesh tape dressing that is covered with glue. It should remain in place until the incision is properly healed, usually 10-14 days. This dressing is designed to naturally slough off. You may trim the excess mesh tape as it peels off. Incision may be briefly wet in a shower. Dry immediately by blotting with a clean, dry towel. Do not bath or swim until instructed by your doctor. Do not scratch, rub, or pick at the dressing. Do not apply any topical ointments or lotions until dressing is completely removed and/or instructed by your doctor. There may be a small piece of suture material at one end of your incision. Do not pull or trim this. If it is bothersome or catching on clothing, you may cover it with a band-aid. *PREVENA incisional vac is a special dressing covering your incision. This dressing provides a sterile dry environment while you are healing. The dressing is to be left in place for 7 days post-operatively. Your home nurse or surgeon will remove. If you develop any redness or blisters or have any questions notify your surgeon immediately. FOLLOW UP VISIT: If appointment is not already scheduled: Please call [facility] to make a follow-up appointment for 2 weeks after your surgery at . Prescriptions: New acetaminophen [Tylenol Extra Strength] 500 mg Tablet 1,000 mg PO Q8 PRN (Reason: pain) Qty: 90 RF: 0 aspirin 325 mg Tablet,Delayed Release (Dr/Ec) 325 mg PO BID Qty: 56 RF: 0 oxycodone 5 mg Tablet 5 mg PO Q6H MDD 6 tabs PRN (Reason: pain) Qty: 30 RF: 0 sennosides [Senokot] 8.6 mg Tablet 17.2 mg PO HS PRN (Reason: constipation) Qty: 28 RF: 0 ondansetron HCl [Zofran] 4 mg tablet 4 mg PO Q8H 5 Days Qty: 15 RF: 0 Continued cholecalciferol (vitamin D3) [Vitamin D3] 2,000 unit Tablet 4,000 unit PO BID RF: 0 celecoxib 200 mg Capsule 200 mg PO BID RF: 0 ranitidine HCl 150 mg Tablet 150 mg PO BID RF: 0 finasteride 5 mg Tablet 5 mg PO QPM RF: 0 loratadine [Claritin] 10 mg Tablet 10 mg PO QPM RF: 0 ezetimibe 10 mg Tablet 10 mg PO QAM RF: 0 Probiotic 3 billion cell Capsule 3,000 mmu cells PO QPM RF: 0 albuterol sulfate 90 mcg/actuation Hfa Aerosol Inhaler 1 puff INHALATION Q6H PRN (Reason: BREATHING ISSUES) RF: 0 Stand-Alone Forms: [employer], [facility]/Other Patient Handouts: Replacement Hip After Hospital Discharge Orders: Discharge Order (Routine); Ordered 05/03/19 Ordered By: Renny Leslie Admission Data Admit Date/Time: 05/02/19 10:44 Attending Provider: Renny Leslie Admit Provider: Renny Leslie Primary Care Provider: PCP,NO Service: Surgical Services Other Interventions: Discharge Summary Assessment (RN) Last Done: 05/03/19 10:21 DC Date/Time DO NOT enter until pt leaves facility: 05/03/19 11:39
== END 2019-05-03 11:39 | disposition home health service (06) | DRG 470 ==
LOC: ASU 05:18 → 3E 10:44

== ENCOUNTER 2021-04-08 10:31 | Observation (INO) ==
--- NOTE | 2021-02-28 10:53 | PAT Medication Instructions ---
Medication Instructions Date of Service February 28, 2021 Home Medications Medication Instructions Recorded acetaminophen [Tylenol Extra 1,000 mg PO Q8 PRN #90 tab 05/02/19 Strength] Probiotic 3,000 mmu cells PO QPM albuterol sulfate 1 puff INHALATION Q6H PRN celecoxib 200 mg PO BID cholecalciferol (vitamin D3) [Vitamin D3] 4,000 unit PO BID finasteride 5 mg PO QPM loratadine [Claritin] 10 mg PO QPM acetaminophen [Tylenol Extra Strength] 1,000 mg PO Q8 PRN vancomycin 125 mg PO BID Continue as directed vancomycin 125 mg PO BID ASK your surgeon for instructions celecoxib 200 mg PO BID DO NOT take the morning of surgery cholecalciferol (vitamin D3) [Vitamin D3] 4,000 unit PO BID Take morning of surgery With a small sip of water, OTHERWISE NOTHING TO EAT OR DRINK AFTER MIDNIGHT: acetaminophen [Tylenol Extra Strength] 1,000 mg PO Q8 PRN (okay to take up to 4 hours prior to surgery if needed) albuterol sulfate 1 puff INHALATION Q6H PRN (use if needed; please bring with you to hospital day of surgery if possible) Take evening before surgery Probiotic 3,000 mmu cells PO QPM albuterol sulfate 1 puff INHALATION Q6H PRN (if needed) cholecalciferol (vitamin D3) [Vitamin D3] 4,000 unit PO BID finasteride 5 mg PO QPM loratadine [Claritin] 10 mg PO QPM acetaminophen [Tylenol Extra Strength] 1,000 mg PO Q8 PRN (if needed) Other Notes If you have any questions please call us at [phone] or [phone] or [phone] or [phone]
--- NOTE | 2021-03-03 14:04 | Anesthesiology Consultation ---
Date of Service March 03, 2021 Assessment & Plan (1) Encounter for pre-operative examination: COVID Status: As of 03/03 assessment, patient denies travel to endemic area, known exposure/sick contacts, or symptoms of COVID19. Patient instructed that they and their household members must follow strict social distancing guidelines, wear a mask in public and avoid travel/events/gatherings for 14 days prior to surgery. Preoperative COVID19 testing to be completed prior to surgery per surgeon's arrangements (03/18 per pt). Patient made aware to self-isolate as much as possible between COVID testing and surgery. Pt scheduled to have his second COVID vaccine on 03/07/21. Chart Review Chart Review: Acceptable Risk for Surgery and Patient seen in Pre Admission Testing Teaching & Discussion Instructed NPO after midnight before surgery, except medications with 15 cc of water. Medication instructions provided according to the PAT guidelines. History Surgery Operation Date: 03/25/21 15:00 Proposed Procedures p Right Total Hip Arthroplasty-Anterior Approach, Head and Liner Exchange, Removal of Acetabular Screw - Renny Leslie DO Height/Weight Height: 5 ft 11 in Weight: 104.8 kg Allergies Allergy/AdvReac Type Severity Reaction Status Date / Time Sulfa (Sulfonamide Allergy Severe HYPOTENSION Verified 02/28/21 08:24 Antibiotics) AND HIVES Medications Home Medications Medication Instructions Recorded Confirmed Last Taken Probiotic 3,000 mmu cells PO QPM 03/27/19 02/28/21 05/01/19 17:00 albuterol sulfate 1 puff INHALATION Q6H PRN 03/27/19 02/28/21 05/02/19 03:30 celecoxib 200 mg PO BID 03/27/19 02/28/21 05/01/19 17:00 cholecalciferol (vitamin D3) 4,000 unit PO BID 03/27/19 02/28/21 2 Weeks Ago [Vitamin D3] ~04/18/19 finasteride 5 mg PO QPM 03/27/19 02/28/21 05/02/19 03:30 loratadine [Claritin] 10 mg PO QPM 03/27/19 02/28/21 05/01/19 17:00 acetaminophen [Tylenol Extra 1,000 mg PO Q8 PRN #90 tab 05/02/19 02/28/21 Unknown Strength] vancomycin 125 mg PO BID 02/28/21 02/28/21 Unknown Past Medical History Medical History (Updated 03/03/21 @ 13:59 by Tano Redman) BPH (benign prostatic hyperplasia) Diverticular disease DJD (degenerative joint disease) Hearing deficit bilat aids > doesnt always wear History of kidney stones Hx of Clostridium difficile infection on Vanco terminal gauger due to hx > has presently per pt > last tested approx 6 mos ago and was positive Hyperlipidemia Osteoarthritis 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; NO RECENT ISSUES- INHALER PRN (DOES NOT USE) Exercise / Class Metabolic Activity II 4-5 Yardwork/Stairs/Walk up hill (DENIES CP OR SOB WITH 1 FOS, DOES DAILY AT HOME) Past Family History Family History (Updated 02/28/21 @ 08:47 by Minda Rios RN) Other Family history unknown Past Surgical History Surgical History History of arthroscopy right knee History of cardiac cath 2008= NO STENTS History of cataract surgery BOTH EYES History of cholecystectomy History of colonoscopy History of esophagogastroduodenoscopy (EGD) History of left hip replacement History of lithotripsy History of tooth extraction Hx of cystoscopy Past Anesthesia History No Hx of Anesthesia Complications and No Family Hx of Anesthesia Complications History of PONV No Hx of PONV and No Hx of Motion Sickness Social History Smoking Status: Former smoker Do You Dip or Chew Tobacco: No Smoking End Date: 1993 Hx Alcohol Use: No Hx Substance Use: No substance use type: does not use Review of Systems Pt denies any recent chest pain, shortness of breath, palpitations, cough, fever, URI, or uncontrolled acid reflux. Physical Exam Vital Signs BP: 135/87 P: 97bpm SPO2: 96% RA T: 98.2 F R: 22 ENMT Mouth: + dentures (partial lower, does not usually wear) and + poor dentition; no chipped teeth and no loose teeth Thyromental Distance: < 3.5 Finger Breadths (3) Mallampati Class: III Mouth / Teeth: 1. missing Neck + thick neck, + limited neck extension and + facial hair (long thick turpin, pt was advised to trim back) Respiratory able to speak in complete sentences and + tachypneic Auscultation: + wheezes (end expiratory) Cardiovascular RRR, no murmur, no edema Testing Laboratory Results 04/05/21 14:15 03/03/21 14:15 PT 10.2 Seconds (9.0-12.0) 03/03/21 14:15 INR 1.0 (0.9-1.1) 03/03/21 14:15 APTT 25.6 Seconds (21.0-31.0) 03/03/21 14:15 Urine Color Dark Yellow 03/03/21 14:15 Urine Appearance Clear (Clear) 03/03/21 14:15 Urine pH 5.0 (4.5-7.5) 03/03/21 14:15 Ur Specific [place] 1.029 (1.000-1.030) 03/03/21 14:15 Urine Protein Negative (Negative) 03/03/21 14:15 Urine Glucose (UA) Negative (Negative) 03/03/21 14:15 Urine Ketones Trace (Negative) H 03/03/21 14:15 Urine Nitrite Negative (Negative) 03/03/21 14:15 Ur Leukocyte Esterase Negative (Negative) 03/03/21 14:15 Electrocardiogram Date: 03/03/21 Normal sinus rhythm at 82 bpm. Cannot rule out inferior infarct, age undetermined. Compared with EKG of 04/03/2019, no significant change was found. Chest X-Ray Date: 03/03/21 COMPARISON STUDY: Chest radiograph April 03, 2019. FINDINGS: No pneumothorax or pleural effusion is present. Numerous calcified mediastinal and hilar lymph nodes are noted. Cardiomediastinal silhouette is stable. Mild left basilar opacity is unchanged. This favors atelectasis or scarring. The appearance of the chest is unchanged. IMPRESSION: No acute cardiopulmonary findings. No change in appearance of the chest.
--- NOTE | 2021-03-03 14:43 | XRay Report ---
XR chest Pre-admission PA/Lat CLINICAL HISTORY: Preoperative evaluation. COMPARISON STUDY: Chest radiograph April 03, 2019. FINDINGS: No pneumothorax or pleural effusion is present. Numerous calcified mediastinal and hilar ly mph nodes are noted. Cardiomediastinal silhouette is stable. Mild left basilar opacity is unchanged. This favors atelectasis or scarring. The appearance of the chest is unchanged. IMPRESSION: No acute cardiopulmonary findings. No change in appearance of the chest. ACT 112: Negative or not required by law. Electronically signed by: Jose Andrea M.D. 03/03/2021 2:41 PM
--- NOTE | 2021-03-03 15:05 | Electrocardiogram Report ---
Test Reason : Blood Pressure : / mmHG Vent. Rate : 082 BPM Atrial Rate : 082 BPM P-R Int : 182 ms QRS Dur : 092 ms QT Int : 352 ms P-R-T Axes : 064 001 089 degrees QTc Int : 411 ms Normal sinus rhythm Cannot rule out Inferior infarct , age undetermined Abnormal ECG When compared with ECG of 03-APR-2019 11:49, No significant change was found Confirmed by Steve Rajan ([id number]) on 03/03/2021 3:05:13 PM Referred By: Renny Leslie Confirmed By:Steve Rajan
[2021-03-03 15:35] LABS: Basophils # (auto) 0.02 K/uL (0-0.2); Basophils % (auto) 0.4 %; Eosinophils # (auto) 0.29 K/uL (0-0.5); Eosinophils % (auto) 6.1 %; Hematocrit (blood only) 41.7 % (42-52); Hemoglobin 14.6 g/dL (14.0-18.0); Lymphocytes # (auto) 1.37 K/uL (1.2-3.4); Lymphocytes % (auto) 28.6 %; Mean Corpuscular Hemoglobin 31.5 pg (25-34); Mean Corpuscular Volume 89.9 fL (80-100); Monocytes # (auto) 0.52 K/uL (0.11-0.59); Monocytes % (auto) 10.9 %; Neutrophils # (auto) 2.59 K/uL (1.4-6.5); Platelet Count 195 K/uL (130-400); RDW Standard Deviation 46.3 fL (36.4-46.3); Red Blood Count 4.64 M/uL (4.7-6.1); White Blood Count 4.79 K/uL (4.8-10.8)
[2021-03-03 15:40] LABS: Partial Thromboplastin Time 25.6 Seconds (21.0-31.0); Prothrombin Time 10.2 Seconds (9.0-12.0)
[2021-03-03 15:42] LABS: Appearance Urine Clear (Clear); Bacteria Urine Automated Negative (Negative); Bilirubin Urine Negative (Negative); Blood Urine Trace (Negative); Color Urine Dark Yellow; Epithelial Cell Urine Auto 0-5 /lpf (0-5); Glucose Urine UA Negative (Negative); Ketones Urine Trace (Negative); Leukocyte Esterase Urine Negative (Negative); Nitrite Urine Negative (Negative); Protein Urine Negative (Negative); Specific Gravity Urine 1.029 (1.000-1.030); Urobilinogen Urine Negative (Negative)
[2021-03-03 15:50] LABS: Albumin Level 3.3 gm/dl (3.4-5.0); BUN Creatinine Ratio 11.4 (10-20); Calcium 8.9 mg/dl (8.5-10.1); Creatinine Clr Calc Pharmacy 58.3 ml/min; Est GFR (African American) 57.9; Est GFR (Non-African American) 49.9; Potassium 4.1 mmol/L (3.5-5.1)
[2021-03-03 17:23] LABS: Calcium Oxalate Crystals Urine Present (None Prsent)
[2021-03-04 05:42] LABS: Estimated Average Glucose 126 mg/dl
--- NOTE | 2021-03-20 19:17 | History & Physical Report ---
Date of Service March 25, 2021 Assessment & Plan (1) Failed total hip arthroplasty: I have indicated the patient for removal of acetabular screw, revision right anterior total hip replacement with head and liner exchange. The risks, benefits and complications of surgery were explained to the patient which include but not limited to infection, acute blood loss, DVT/PE, injury to nerves, vessels, bone, soft tissue, arthrofibrosis, chronic pain, failure of the prosthesis, hip dislocation, leg length discrepancy, need for additional surgery, cardiac and pulmonary events and . The patient wished to proceed with surgery and informed consent was obtained at this time. We will plan for 81mg ASA BID post-operatively for DVT prophylaxis. Upon discharge the patient will be discharged home with home health services. Appropriate clearances by PCP were obtained. History of Present Illness Chief Complaint: Painful right total hip Primary Care Provider: CHRYSTAL PCP The patient is a 75 year old male with PSHx for uncomplicated right anterior RAOUL on 05/02/19. The patient reported intermittent pain with hip flexion and increased activity that progressed over the past year. The patient has failed outpatient conservative treatments to this point which included NSAIDs, activity modification, physical therapy and home exercise program. Full work up was performed, CT demonstrated acetabular screw which extended into the iliacus muscle. The patient's pain and limited function have progressed to the point where they severely hinder their activities of daily living and they no longer tolerate exercise programs. They are requesting to proceed with KIANNA and revision total hip replacement surgery. Allergies Allergy/AdvReac Type Severity Reaction Status Date / Time Sulfa (Sulfonamide Allergy Severe HYPOTENSION Verified 03/20/21 10:22 Antibiotics) AND HIVES ciprofloxacin Allergy Unknown Unknown Verified 03/20/21 10:22 meloxicam Allergy Unknown Unknown Verified 03/20/21 10:22 [id number]-[id number]-Uzs Reductase Allergy Unknown Unknown Verified 03/20/21 10:22 Inhibitor Home Medications Medication Instructions Recorded Confirmed Type Probiotic 3,000 mmu cells PO QPM 03/27/19 02/28/21 History albuterol sulfate 1 puff INHALATION Q6H PRN 03/27/19 02/28/21 History celecoxib 200 mg PO BID 03/27/19 02/28/21 History cholecalciferol (vitamin D3) 4,000 unit PO BID 03/27/19 02/28/21 History [Vitamin D3] finasteride 5 mg PO QPM 03/27/19 02/28/21 History loratadine [Claritin] 10 mg PO QPM 03/27/19 02/28/21 History acetaminophen [Tylenol Extra 1,000 mg PO Q8 PRN #90 tab 05/02/19 02/28/21 Rx Strength] vancomycin 125 mg PO BID 02/28/21 02/28/21 History Past Med/Surg History Medical History BPH (benign prostatic hyperplasia) Diverticular disease DJD (degenerative joint disease) Hearing deficit bilat aids > doesnt always wear History of kidney stones Hx of Clostridium difficile infection on Vanco halfway due to hx > has presently per pt > last tested approx 6 mos ago and was positive Hyperlipidemia Osteoarthritis 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; NO RECENT ISSUES- INHALER PRN (DOES NOT USE) Surgical History History of arthroscopy right knee History of cardiac cath 2008= NO STENTS History of cataract surgery BOTH EYES History of cholecystectomy History of colonoscopy History of esophagogastroduodenoscopy (EGD) History of left hip replacement History of lithotripsy History of tooth extraction Hx of cystoscopy Family History Other Family history unknown Social History Smoking Status: Former smoker Smoking End Date: 1993; Second Hand Exposure: No; Do You Dip or Chew Tobacco: No; Tobacco Cessation Education Requested by Patient: No Hx Alcohol Use: No Hx Substance Use: No Preferred Language: Ethiopian Communication Ability: Effective Apn Required: No Beliefs That Will Affect Care: None Current Living Situation: Significant Other Other Information That Helps Us Care for You: No Feels Safe at Home: Yes Safety Concerns: Feels Safe At This Time Assistive Devices: Glasses and Hearing Aid - Bilateral Assistive Devices Comment: partial to bottom Review of Systems Review of Systems: All systems reviewed & are unremarkable except as noted in HPI & below Constitutional: as per Subjective / HPI Physical Exam Physical Exam: RLE NVSI +EHL/FHL/TA/GS SILT grossly, +2 DP pulse, compartments soft NT, limited hip flexion with decreased muscle strength Constitutional: WD/WN, vitals as above Eyes: PERRL, conjunctivae normal, anicteric sclerae ENMT: external ear and nose normal, oropharynx normal Neck: trachea midline, no thyromegaly Respiratory: normal respiratory effort, lungs clear to auscultation Cardiovascular: RRR, no murmur, no edema Gastrointestinal (Abdomen): normal bowel sounds, soft, nontender, no hepatosplenomegaly Musculoskeletal: no cyanosis or clubbing, extremities motor strength 5/5 Skin: no rashes, warm and dry Neurologic: patellar DTR's 2+ bilat, sensation intact Psychiatric: A+Ox3, euthymic affect Lymphatic: no cervical or axillary lymphadenopathy Results & Data Results & Data ([facility]) Diagnostic Findings Well aligned well fixed total hip prosthesis without fracture/dislocation. CT demonstrates no loosening or fracture, acetabular screw extending into the iliacus muscle. Pre Admission Testing Addendum Laboratory Results 03/03/21 14:15 03/03/21 14:15 PT 10.2 Seconds (9.0-12.0) 03/03/21 14:15 INR 1.0 (0.9-1.1) 03/03/21 14:15 APTT 25.6 Seconds (21.0-31.0) 03/03/21 14:15 Hemoglobin A1c 6.0 % (4.5-5.6) H 03/03/21 14:15 Urine Color Dark Yellow 03/03/21 14:15 Urine Appearance Clear (Clear) 03/03/21 14:15 Urine pH 5.0 (4.5-7.5) 03/03/21 14:15 Ur Specific [place] 1.029 (1.000-1.030) 03/03/21 14:15 Urine Protein Negative (Negative) 03/03/21 14:15 Urine Glucose (UA) Negative (Negative) 03/03/21 14:15 Urine Ketones Trace (Negative) H 03/03/21 14:15 Urine Nitrite Negative (Negative) 03/03/21 14:15 Ur Leukocyte Esterase Negative (Negative) 03/03/21 14:15 Urine WBC (Auto) 1-5 /hpf (0-5) 03/03/21 14:15 Urine RBC (Auto) 5-10 /hpf (0-4) H 03/03/21 14:15 U Hyaline Cast (Auto) 1-5 /lpf (0-5) 03/03/21 14:15 U Epithel Cells (Auto) 0-5 /lpf (0-5) 03/03/21 14:15 Urine Bacteria (Auto) Negative (Negative) 03/03/21 14:15 Blood Type A Positive 03/03/21 14:15 Antibody Screen NEGATIVE 03/03/21 14:15
--- NOTE | 2021-04-04 21:39 | History & Physical Report ---
Date of Service April 08, 2021 Assessment & Plan (1) Failed total hip arthroplasty: I have indicated the patient for removal of acetabular screw, revision right anterior total hip replacement with head and liner exchange. The risks, benefits and complications of surgery were explained to the patient which include but not limited to infection, acute blood loss, DVT/PE, injury to nerves, vessels, bone, soft tissue, arthrofibrosis, chronic pain, failure of the prosthesis, hip dislocation, leg length discrepancy, need for additional surgery, cardiac and pulmonary events and . The patient wished to proceed with surgery and informed consent was obtained at this time. We will plan for 81mg ASA BID post-operatively for DVT prophylaxis. Upon discharge the patient will be discharged home with home health services. Appropriate clearances by PCP were obtained. History of Present Illness Primary Care Provider: NO PCP The patient is a 75 year old male with PSHx for uncomplicated right anterior RAOUL on 05/02/19. The patient reported intermittent pain with hip flexion and increased activity that progressed over the past year. The patient has failed outpatient conservative treatments to this point which included NSAIDs, activity modification, physical therapy and home exercise program. Full work up was performed, CT demonstrated acetabular screw which extended into the iliacus muscle. Extensive workup was performed of the patient's lumbar spine, MRI negative for injury of the flexor muscle. The patient's pain and limited function have progressed to the point where they severely hinder their activities of daily living and they no longer tolerate exercise programs. They are requesting to proceed with KIANNA and revision total hip replacement surgery. Allergies Allergy/AdvReac Type Severity Reaction Status Date / Time Sulfa (Sulfonamide Allergy Severe HYPOTENSION Verified 04/08/21 11:12 Antibiotics) AND HIVES ciprofloxacin Allergy Unknown Unknown Verified 04/08/21 11:12 meloxicam Allergy Unknown Unknown Verified 04/08/21 11:12 [id number]-[id number]-Xcq Reductase Allergy Unknown Unknown Verified 04/08/21 11:12 Inhibitor Home Medications Medication Instructions Recorded Confirmed Type Probiotic 3,000 mmu cells PO QPM 03/27/19 04/08/21 History albuterol sulfate 1 puff INHALATION Q6H PRN 03/27/19 04/08/21 History cholecalciferol (vitamin D3) 4,000 unit PO BID 03/27/19 04/08/21 History [Vitamin D3] finasteride 5 mg PO QPM 03/27/19 04/08/21 History loratadine [Claritin] 10 mg PO QPM 03/27/19 04/08/21 History acetaminophen [Tylenol Extra 1,000 mg PO Q8 PRN #90 tab 05/02/19 04/08/21 Rx Strength] vancomycin 125 mg PO BID 02/28/21 04/08/21 History Past Med/Surg History Medical History BPH (benign prostatic hyperplasia) Diverticular disease DJD (degenerative joint disease) Hearing deficit bilat aids > doesnt always wear History of kidney stones Hx of Clostridium difficile infection on Vanco correction due to hx > has presently per pt > last tested approx 6 mos ago and was positive Hyperlipidemia Osteoarthritis 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; NO RECENT ISSUES- INHALER PRN (DOES NOT USE) Surgical History History of arthroscopy right knee History of cardiac cath 2008= NO STENTS History of cataract surgery BOTH EYES History of cholecystectomy History of colonoscopy History of esophagogastroduodenoscopy (EGD) History of left hip replacement History of lithotripsy History of tooth extraction Hx of cystoscopy Family History Other Family history unknown Social History Smoking Status: Former smoker Smoking End Date: 1993; Second Hand Exposure: No; Do You Dip or Chew Tobacco: No; Tobacco Cessation Education Requested by Patient: No Hx Alcohol Use: No Hx Substance Use: No Preferred Language: Israeli Communication Ability: Effective Cast Shell Grinder Required: No Beliefs That Will Affect Care: None Current Living Situation: Significant Other Other Information That Helps Us Care for You: No Feels Safe at Home: Yes Safety Concerns: Feels Safe At This Time Assistive Devices: Glasses and Hearing Aid - Bilateral Assistive Devices Comment: partial to bottom Review of Systems Review of Systems: All systems reviewed & are unremarkable except as noted in HPI & below Constitutional: as per Subjective / HPI Physical Exam Physical Exam: RLE NVSI +EHL/FHL/TA/GS SILT grossly, +2 DP pulse, compartments soft NT, limited hip flexion with decreased muscle strength Constitutional: WD/WN, vitals as above Eyes: PERRL, conjunctivae normal, anicteric sclerae ENMT: external ear and nose normal, oropharynx normal Neck: trachea midline, no thyromegaly Respiratory: normal respiratory effort, lungs clear to auscultation Cardiovascular: RRR, no murmur, no edema Gastrointestinal (Abdomen): normal bowel sounds, soft, nontender, no hepatosplenomegaly Musculoskeletal: no cyanosis or clubbing, extremities motor strength 5/5 Skin: no rashes, warm and dry Neurologic: patellar DTR's 2+ bilat, sensation intact Psychiatric: A+Ox3, euthymic affect Lymphatic: no cervical or axillary lymphadenopathy Results & Data Results & Data ([facility]) Diagnostic Findings XRs of the right hip demonstrates a well aligned well fixed total hip prosthesis without fracture/dislocation. CT of the right hip shows acetabular screw extending into the iliacus muscle. Pre Admission Testing Addendum Laboratory Results 03/03/21 14:15 03/03/21 14:15 PT 10.2 Seconds (9.0-12.0) 03/03/21 14:15 INR 1.0 (0.9-1.1) 03/03/21 14:15 APTT 25.6 Seconds (21.0-31.0) 03/03/21 14:15 Hemoglobin A1c 6.0 % (4.5-5.6) H 03/03/21 14:15 Urine Color Dark Yellow 03/03/21 14:15 Urine Appearance Clear (Clear) 03/03/21 14:15 Urine pH 5.0 (4.5-7.5) 03/03/21 14:15 Ur Specific [place] 1.029 (1.000-1.030) 03/03/21 14:15 Urine Protein Negative (Negative) 03/03/21 14:15 Urine Glucose (UA) Negative (Negative) 03/03/21 14:15 Urine Ketones Trace (Negative) H 03/03/21 14:15 Urine Nitrite Negative (Negative) 03/03/21 14:15 Ur Leukocyte Esterase Negative (Negative) 03/03/21 14:15 Urine WBC (Auto) 1-5 /hpf (0-5) 03/03/21 14:15 Urine RBC (Auto) 5-10 /hpf (0-4) H 03/03/21 14:15 U Hyaline Cast (Auto) 1-5 /lpf (0-5) 03/03/21 14:15 U Epithel Cells (Auto) 0-5 /lpf (0-5) 03/03/21 14:15 Urine Bacteria (Auto) Negative (Negative) 03/03/21 14:15 Blood Type A Positive 03/03/21 14:15 Antibody Screen NEGATIVE 03/03/21 14:15
[~2021-04-08 10:31] MED LIST: ACETAMINOPHEN 500 MG TAB PO SCH; BUPIVACAINE 0.5 % 5 MG/1 ML PF 10ML VIAL ONE; CeleBREX 200 MG CAP PO SCH; FAMOTIDINE 20 MG TAB PO SCH; GABAPENTIN 300 MG CAP PO SCH; LR 500ML BOLUS, THEN 15ML/HR IV SCH; METOCLOPRAMIDE HCL 10 MG TABLET PO SCH; ROPIVACAINE 0.5% HCL/PF 150 MG, BUPIVACAINE 0.75% MPF 20 ML, EPINEPHrine 30MG/30ML (OR ... INFIL SCH; ROPIVACAINE 0.5% HCL/PF 150 MG, BUPIVACAINE 0.75% MPF 20 ML, EPINEPHrine 30MG/30ML (OR ... INSTIL SCH; TRANEXAMIC ACID 1,000 MG **IV Intra-op IV SCH; TRANEXAMIC ACID 1,000 MG **IV Pre-op IV SCH; ceFAZolin 2000MG 2,000 MG/15 ML SYR IV SCH; dexAMETHasone 4 MG TAB PO SCH
--- NOTE | 2021-04-08 12:36 | History & Physical Bridge Note ---
Date of Service April 08, 2021 History & Physical Bridge Note I have examined the patient, reviewed the History & Physical and in the interval since the performance of the History & Physical I have noted the following changes of clinical significance: no changes noted
[2021-04-08] MEDS ORDERED: VANCOMYCIN HCL 1,500 MG in SODIUM CHLORIDE 0.9% 500 ML IV SCH (12:45)
[2021-04-08] MEDS ORDERED: MIDAZOLAM HCL 1 MG/ML 2ML VIAL ONE (13:39)
[2021-04-08] MEDS ORDERED: PROPOFOL IV EMULSION 10 MG/ML 20 ML VIAL IV ONE ×6 (13:39→18:05)
[2021-04-08] MEDS ORDERED: PHENYLEPHRINE HCL 10 MG/ML VIAL ONE (13:40)
[2021-04-08] MEDS ORDERED: ePHEDrine sulfate 50 MG/ML AMP ONE (13:40)
[2021-04-08] MEDS ORDERED: ePHEDrine sulfate 50 MG/ML AMP IV PRN (14:28)
[2021-04-08] MEDS ORDERED: HYDROmorphone INJ 2 MG/ML SYR/VIAL IV PRN (14:28)
[2021-04-08] MEDS ORDERED: ATROPINE SULFATE 0.1 MG/ML 10ML SYR IV PRN (14:28)
[2021-04-08] MEDS ORDERED: ORTHO JOINT ANESTHETIC ONE (14:46)
[2021-04-08] MEDS ORDERED: KETAMINE 50 MG/5 ML SYRINGE ONE (15:37)
--- NOTE | 2021-04-08 18:19 | Post Operative Brief Note ---
Immediate Post Op Note v1 Date of Surgery April 08, 2021 Pre & Post Diagnosis Operation Date: 04/08/21 13:45 Pre-Op Diagnosis: painful right total hip arthroplasty Post-Op Diagnosis: painful right total hip arthroplasty I identified the patient and participated in the time-out.: Yes Procedure Operation Date: 04/08/21 13:45 Actual Procedures p Right Total Hip Arthroplasty revision- Anterior Approach, acetabular, with Head Liner Exchange, and Removal of Acetabular Screw(Right) - Renny Leslie DO Surgeon Renny Leslie DO Gambling Floor Supervisor Elbert Vicente Estimated Blood Loss 225 Findings Consistent with Post-Op Diagnosis Fluids See anesthesia report Anesthesia Type Spinal MAC Complications none Disposition Disposition: Recovery Room Overlapping Procedure I was present for: the critical portions of procedure. I was immediately available: during the entire case. Back up surgeon: was not required during procedure.
--- NOTE | 2021-04-08 18:20 | Fluoroscopy Report ---
FL hip RT 1V HISTORY: 75 years-old Male RIGHT ANTERIOR HIP right hip total joint arthroplasty COMPARISON: CT right hip 02/21/2021 TECHNIQUE: 4 spot fluoroscopic images of the right hip were obtained utilizing 57 seconds fluoroscopy time FINDINGS: Revision of the right hip total joint arthroplasty. Orthopedic retraction devices are noted on initia l images. Last image demonstrates bilateral hip total joint arthroplasties. No acute fracture or unex pected opaque foreign body. Expected postsurgical soft tissue swelling and deep tissue air surrounds the right hip. IMPRESSION: Fluoroscopic assistance as above. ACT 112: Negative or not required by law. The above report was generated using voice recognition software. It may contain grammatical, syntax o r spelling errors. Electronically signed by: Rodri Hayes M.D. 04/08/2021 6:18 PM
--- NOTE | 2021-04-08 18:20 | Operative Report ---
Post Operative Report Pre & Post Diagnosis Operation Date: 04/08/21 13:45 Pre-Op Diagnosis: painful right total hip arthroplasty Post-Op Diagnosis: painful right total hip arthroplasty I identified the patient and participated in the time-out.: Yes Procedure Operation Date: 04/08/21 13:45 Actual Procedures p Right Total Hip Arthroplasty revision- Anterior Approach, acetabular, with Head Liner Exchange, and Removal of Acetabular Screw(Right) - Renny Leslie DO Surgeon Renny Leslie, Attendant [employer] Elbert Vicente Estimated Blood Loss 225 Findings Consistent with Post-Op Diagnosis Fluids See anesthesia report Specimens None Anesthesia Type Spinal MAC Complications none Disposition Disposition: Recovery Room Indications The patient is a 75 year old male with PSHx for uncomplicated right anterior RAOUL on 05/02/19. The patient reported intermittent pain with hip flexion and increased activity that progressed over the past year. The patient has failed outpatient conservative treatments to this point which included NSAIDs, activity modification, physical therapy and home exercise program. Full work up was performed, CT demonstrated acetabular screw which extended into the iliacus muscle. Extensive workup was performed of the patient's lumbar spine, MRI negative for injury of the flexor muscle. The patient's pain and limited function have progressed to the point where they severely hinder their activities of daily living and they no longer tolerate exercise programs. They are requesting to proceed with KIANNA and revision total hip replacement surgery. I have indicated the patient for removal of acetabular screw, revision right anterior total hip replacement with head and liner exchange. The risks, benefits and complications of surgery were explained to the patient which include but not limited to infection, acute blood loss, DVT/PE, injury to nerves, vessels, bone, soft tissue, arthrofibrosis, chronic pain, failure of the prosthesis, hip dislocation, leg length discrepancy, need for additional surgery, cardiac and pulmonary events and . The patient wished to proceed with surgery and informed consent was obtained at this time. We will plan for 81mg ASA BID post-operatively for DVT prophylaxis. Upon discharge the patient will be discharged home with home health services. Appropriate clearances by PCP were obtained. Description of Procedure COMPONENTS USED: [employer] hip system: Acetabulum 58 mm readapt, femoral head 36+4, liner 36 x 58 mm DESCRIPTION OF PROCEDURE: Following satisfactory general anesthesia, the patient was placed supine on the OR table. The left leg was placed in the well leg young and the right leg in the traction device. The right leg was prepared with ChloraPrep and draped sterilely. A surgical timeout was performed, patient identified and site jean paul verified. Appropriate antibiotics were given. A standard anterior approach in the interval between the sartorius and tensor muscles was performed in line with prior incision. Dissection was carried down through subcutaneous tissues. Electrocautery was utilized for hemostasis. There was significant scar tissue which was carefully debrided. A capsulectomy was was performed exposing the joint and prosthesis. Meticulous removal of intra-articular scar tissue was performed with bovie. The hip prosthesis was dislocated by traction and external rotation in a controlled manner. The femoral head was removed from the trunion, which was clean and was without signs of wear. The femoral stem stability assessed and found to be stable without signs of loosening. Next, exposure of the acetabulum was obtained. Additional scar tissue removal and debridement of the intra-articular soft tissue was performed. Utilizing the liner extraction tool the liner was removed. The acetabular screw was completely removed. A trial liner was inserted and using the acetabular explant system the acetabular component was removed with minimal bone loss. Next sequential reaming was performed and a 58 mm readapt acetabular cup was inserted, care was taking to ensure no anterior overhang. 3 acetabular screws were inserted measuring 30 mm, 20 mm and 20 mm, care was taken to ensure all within bone with x-rays and the depth gauge. The cup was irrigated to ensure all debris was removed. A final 58x36 mm acetabular liner was inserted and properly seated. Access to the proximal femur was once more gained and a 36+4 mm femoral head was impacted into place and the hip was reduced. Soft tissue tension was restored and the leg lengths were equal. A Betadine soak was performed. After 3 minutes, the hip was once more irrigated with copious sterile saline solution with bacitracin. Karen-incisional soft tissue was injected utilizing [place] [facility] which includes a combination of Ropivicaine 0.5% 150mg, Bupivicaine 0.5%/Epinephrine 1:200,000 30ml, Toradol 30mg, Dexamethasone 4mg, Ketamine 10mg, Clonidine 100mcg and NSS 30ml solution. The deep tissue plane and fascia was closed with #1 Vicryl, the subcutaneous tissues with 2-0 Vicryl. The skin was closed with chichi and a sterile dry dressing was applied which included YENNI incisional VAC. The patient tolerated the procedure well and was transported to PACU in stable condition. Due to the complex nature of the procedure, the entire surgery was performed with the operational assistance of Elbert Vicente PA-C. The assistant reading teacher, under direct supervision, was involved in the actual performance of all aspects of the surgical procedure including patient positioning, hemostasis, tissue retraction, instrument management and wound closure. I attest to the content of the Intraoperative Record and any orders documented therein. Any exceptions are noted below.
[2021-04-08] MEDS: fentaNYL citrate 100 MCG/2 ML VIAL IV PRN ×2 (18:56→19:03)
--- NOTE | 2021-04-08 19:10 | XRay Report ---
XR hip 1V RT w pelvis HISTORY: 75 years-old Male IN PACU - A/P PELVIS and LATERAL HIP right hip total joint arthroplasty COMPARISON: Fluoroscopic images of the right hip of same day TECHNIQUE: AP view of the pelvis with 2 views the right hip FINDINGS: Bilateral hip total joint arthroplasties. No acute fracture or unexpected opaque foreign body. Latera l right hip skin chichi with expected postsurgical soft tissue swelling and deep tissue air. No miya lignment. IMPRESSION: Right hip total joint arthroplasty with expected postoperative changes. ACT 112: Negative or not required by law. The above report was generated using voice recognition software. It may contain grammatical, syntax o r spelling errors. Electronically signed by: Rodri Hayes M.D. 04/08/2021 7:08 PM
--- NOTE | 2021-04-08 19:19 | Anesthesiology Progress Note ---
Date of Service April 08, 2021 Anesthesia Post Procedure Vital Signs Vital Signs: Temp Pulse Resp BP Pulse Ox 04/08/21 19:10 81 12 108/83 95 04/08/21 19:00 83 17 118/84 98 04/08/21 18:50 88 16 114/90 99 04/08/21 18:40 91 H 24 126/89 94 04/08/21 18:33 36.0 C L 94 H 23 121/90 94 04/08/21 11:24 36.6 C 102 H 18 128/98 95 Pain Intensity Right Hip: Pain Intensity: 8 Transfer of Care Handoff Completed per policy Notes Mental Status: alert / awake / arousable and participated in evaluation Nausea / Vomiting: adequately controlled Pain: adequately controlled Airway Patency, RR, SpO2: stable & adequate BP & HR: stable & adequate Hydration State: stable & adequate Neuraxial Anesthesia: was administered and sensory block is resolving Anesthetic Complications: no major complications apparent and Pt Satisfied with anesthetic care
--- NOTE | 2021-04-08 19:24 | Orthopedic Progress Note ---
Date of Service April 08, 2021 Assessment & Plan (1) Failed total hip arthroplasty: Status post revision right anterior total hip arthroplasty, acetabulum -Ancef\Vanco x24 -DVT prophylaxis: SCDs, teds, Lovenox daily -Weight-bear as tolerates right lower extremity -PT/OT -Postoperative x-ray demonstrates a well aligned well fixed prosthesis without fracture or dislocation -A.m. lab -DC planning Subjective Post Operative Progress Note Patient seen in PACU, comfortable, denies complaints, pain well controlled, no acute issues. Review of Systems Review of Systems: All systems reviewed & are unremarkable except as noted in HPI & below Constitutional: as per Subjective / HPI Physical Exam Physical Exam: RLE NVSI +EHL/FHL/TA/GS SILT grossly, +2 DP pulse, compartments soft NT, dressing cdi. Constitutional: WD/WN, vitals as above Results & Data ([facility]) Vital Signs (Past 12 Hours) Vital Signs Temp Pulse Resp BP Pulse Ox 04/08/21 19:10 81 12 108/83 95 04/08/21 19:00 83 17 118/84 98 04/08/21 18:50 88 16 114/90 99 04/08/21 18:40 91 H 24 126/89 94 04/08/21 18:33 36.0 C L 94 H 23 121/90 94 04/08/21 11:24 36.6 C 102 H 18 128/98 95
[2021-04-08] MEDS ORDERED: oxyCODONE HCL IR 5 MG TAB (IMMEDIATE RELEASE) PO PRN (19:42)
[2021-04-08] MEDS ORDERED: MAGNESIUM HYDROXIDE SUSP 30 ML UDC PO PRN (19:42)
[2021-04-08] MEDS ORDERED: bisacodyL 10 MG SUPP PR PRN (19:42)
[2021-04-08] MEDS ORDERED: ONDANSETRON INJ 2 MG/ML 2 ML VIAL IV PRN (19:42)
[2021-04-08] MEDS ORDERED: diphenhydrAMINE Capsule 25 MG CAP PO PRN (19:42)
[2021-04-08] MEDS ORDERED: SODIUM CHLORIDE 0.9% 1000ML 1,000 ML IV SCH (19:42)
[2021-04-08] MEDS ORDERED: VANCOMYCIN CONSULT ACTIVE PRN (19:42)
[2021-04-08] MEDS ORDERED: METOCLOPRAMIDE HCL INJ 5 MG/ML 2 ML VIAL IV PRN (19:42)
[2021-04-08] MEDS ORDERED: NALOXONE HCL 0.4 MG/1 ML VIAL/CARP IV PRN (19:42)
[2021-04-08] MEDS: HYDROmorphone INJ 0.5 MG/0.5 ML SYR IV PRN (20:14)
[2021-04-08] MEDS: DOCUSATE SODIUM 100 MG CAP PO SCH (20:16)
[2021-04-08] MEDS ORDERED: SENNA 8.6 MG TAB PO SCH (21:00)
[2021-04-08] MEDS: ACETAMINOPHEN 500 MG TAB PO SCH (21:39)
[2021-04-08] MEDS: ceFAZolin 2000MG 2,000 MG/15 ML SYR IV SCH (21:39)
[2021-04-09] MEDS ORDERED: VANCOMYCIN HCL 1,500 MG in SODIUM CHLORIDE 0.9% 500 ML IV SCH
[2021-04-09] MEDS: HYDROmorphone INJ 0.5 MG/0.5 ML SYR IV PRN ×2 (00:23→05:22)
[2021-04-09] MEDS: ACETAMINOPHEN 500 MG TAB PO SCH ×2 (05:21→14:22)
[2021-04-09] MEDS: ceFAZolin 2000MG 2,000 MG/15 ML SYR IV SCH (05:21)
[2021-04-09 06:59] LABS: Hemoglobin 11.9 g/dL (14.0-18.0); Immature Granulocytes # (auto) 0.01 K/uL (0.00-0.02); Immature Granulocytes % (auto) 0.1 %; Lymphocytes # (auto) 0.73 K/uL (1.2-3.4); Lymphocytes % (auto) 6.4 %; Mean Corpuscular Hemoglobin 30.3 pg (25-34); Mean Corpuscular Volume 89.1 fL (80-100); Mean Platelet Volume 8.8 fL (7.4-10.4); Monocytes # (auto) 0.58 K/uL (0.11-0.59); Monocytes % (auto) 5.1 %; Neutrophils # (auto) 10.03 K/uL (1.4-6.5); Neutrophils % (auto) 88.4 %; Platelet Count 225 K/uL (130-400); RDW Coefficient of Variation 13.3 % (11.5-14.5); RDW Standard Deviation 43.9 fL (36.4-46.3); Red Blood Count 3.93 M/uL (4.7-6.1); White Blood Count 11.35 K/uL (4.8-10.8)
[2021-04-09 07:49] LABS: BUN Creatinine Ratio 19.7 (10-20); Calcium 7.9 mg/dl (8.5-10.1); Creatinine Clr Calc Pharmacy 77.6 ml/min; Est GFR (African American) 82.2; Est GFR (Non-African American) 70.9; Potassium 4.3 mmol/L (3.5-5.1)
[2021-04-09] MEDS: DOCUSATE SODIUM 100 MG CAP PO SCH (08:55)
[2021-04-09] MEDS ORDERED: MULTIVITAMIN TAB PO SCH (09:00)
[2021-04-09] MEDS ORDERED: ENOXAPARIN INJ 40 MG/0.4 ML SYR SQ SCH (09:00)
--- NOTE | 2021-04-09 11:52 | Orthopedic Progress Note ---
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 lab - as above, hgb 11.9 -DC planning - home with OP PT Admission and Anticipated Discharge Date Admission Date: April 08, 2021 Subjective Post Operative Progress Note Patient seen sitting up in bed, comfortable, denies complaints, pain well controlled, no acute issues. Denies F/C/N/V/SOB/CP. Review of Systems Review of Systems: All systems reviewed & are unremarkable except as noted in HPI & below Constitutional: as per Subjective / HPI Physical Exam Physical Exam: RLE NVSI +EHL/FHL/TA/GS SILT grossly, +2 DP pulse, compartments soft NT, dressing cdi. Constitutional: WD/WN, vitals as above Results & Data ([facility]) Vital Signs (Past 12 Hours) Vital Signs Temp Pulse Resp BP Pulse Ox 04/09/21 08:27 36.5 C 89 18 105/71 96 04/09/21 04:33 36.4 C L 79 16 122/83 95 Laboratory Results 04/09/21 04/09/21 04/08/21 Range/Units 06:38 06:38 11:25 WBC 11.35 H (4.8-10.8) K/uL RBC 3.93 L (4.7-6.1) M/uL Hgb 11.9 L (14.0-18.0) g/dL Hct 35.0 L (42-52) % MCV 89.1 (80-100) fL MCH 30.3 (25-34) pg MCHC 34.0 (32-36) g/dL RDW Std Deviation 43.9 (36.4-46.3) fL RDW Coeff of Dereje 13.3 (11.5-14.5) % Plt Count 225 (130-400) K/uL MPV 8.8 (7.4-10.4) fL Immature Gran % (Auto) 0.1 % Neut % (Auto) 88.4 % Lymph % (Auto) 6.4 % [place] % (Auto) 5.1 % Eos % (Auto) 0.0 % Baso % (Auto) 0.0 % Neut # (Auto) 10.03 H (1.4-6.5) K/uL Lymph # (Auto) 0.73 L (1.2-3.4) K/uL [place] # (Auto) 0.58 (0.11-0.59) K/uL Eos # (Auto) 0.00 (0-0.5) K/uL Baso # (Auto) 0.00 (0-0.2) K/uL Immature Gran # (Auto) 0.01 (0.00-0.02) K/uL Sodium 138 (136-145) mmol/L Potassium 4.3 (3.5-5.1) mmol/L Chloride 107 (98-107) mmol/L Carbon Dioxide 24 (21-32) mmol/L Anion Gap 7.0 (3-11) BUN 20 H (7-18) mg/dl Creatinine 1.04 (0.6-1.4) mg/dl Est Cr Clr Drug Dosing 77.6 ml/min Est GFR ( Amer) 82.2 Est GFR (Non-Af Amer) 70.9 BUN/Creatinine Ratio 19.7 (10-20) Glucose 143 H (70-99) mg/dl Calcium 7.9 L (8.5-10.1) mg/dl SARS-CoV-2, RNA, NAAT NEGATIVE (NEGATIVE)
--- NOTE | 2021-04-09 17:56 | Discharge Summary ---
Date of Service April 09, 2021 Admission HPI Per Admitting Provider The patient is a 75 year old male with PSHx for uncomplicated right anterior RAOUL on 05/02/19. The patient reported intermittent pain with hip flexion and increased activity that progressed over the past year. The patient has failed outpatient conservative treatments to this point which included NSAIDs, activity modification, physical therapy and home exercise program. Full work up was performed, CT demonstrated acetabular screw which extended into the iliacus muscle. Extensive workup was performed of the patient's lumbar spine, MRI negative for injury of the flexor muscle. The patient's pain and limited function have progressed to the point where they severely hinder their activities of daily living and they no longer tolerate exercise programs. They are requesting to proceed with KIANNA and revision total hip replacement surgery. Principal Diagnosis Revision right anterior total hip replacement Discharge Exam RLE NVSI +EHL/FHL/TA/GS SILT grossly, +2 DP pulse, compartments soft NT, dressing cdi. Constitutional WD/WN, vitals as above Discharge Data Allergies Allergy/AdvReac Type Severity Reaction Status Date / Time Sulfa (Sulfonamide Allergy Severe HYPOTENSION Verified 04/08/21 11:12 Antibiotics) AND HIVES ciprofloxacin Allergy Unknown Unknown Verified 04/08/21 11:12 meloxicam Allergy Unknown Unknown Verified 04/08/21 11:12 Wnoxcwe-Tqx-Blp Reductase Allergy Unknown Unknown Verified 04/08/21 11:12 Inhibitor Procedures Performed Operation Date: 04/08/21 13:45 Actual Procedures p Right Total Hip Arthroplasty revision- Anterior Approach, acetabular, with Head Liner Exchange, and Removal of Acetabular Screw(Right) - Renny Leslie DO Ordered Studies 04/08/21 13:45 FL hip RT 1V Routine Hospital Course (1) Failed total hip arthroplasty: Hospital Course: On 04/08/21 the patient was taken to the operating room, adequate anesthesia administered and underwent a revision right total hip arthroplasty. The patient tolerated the procedure well and was taken to the PACU in stable condition. Post-operatively the patient was started on a DVT ppx medication and given appropriate IV antibiotics. Consults were placed to physical therapy, occupational therapy and case management. On POD#1, the patient did well overnight and their pain was well controlled. Labs were drawn and the Hgb was 11.9. The patient progressed well with PT. Dressings were changed at this time and the incision was clean, dry and intact. On POD#2, The patients hospital stay was relatively uneventful and they were deemed stable by the orthopedic team and consultants to be discharged home with outpatient PT on 04/09/21. Discharge Instructions: Upon discharge the patient may weight bear as tolerates through their operative extremity. They were instructed to keep the incision clean and dry at all times. The patient may shower but should not submerge the incision, avoid bathing, pools and hot tubs. The patient was given a script for pain medication and should take as instructed. The patient was given a script for DVT ppx Lovenox 40mg daily and should take as directed. The patient was instructed to not drive or travel for long distances until cleared to do so. If the patient develops any symptoms of fevers, chills, nausea, vomiting, increased redness, swelling, pain or drainage from the surgical site, they should notify the office and/or proceed to the nearest emergency room. The patient should follow up in 10-14 days after surgery for their routine post-operative follow-up appointment and should call the office, to confirm the date and time. Status post revision right anterior total hip arthroplasty, acetabulum POD#1 -Ancef\Vanco x24 -DVT prophylaxis: SCDs, teds, Lovenox daily -Weight-bear as tolerates right lower extremity -PT/OT -Postoperative x-ray demonstrates a well aligned well fixed prosthesis without fracture or dislocation -A.m. lab - as above, hgb 11.9 -DC planning - home with OP PT Total Time Total Time Spent Total Time Spent (In Minutes): 30 Discharge Plan Discharge Items Patient Disposition: Home - Self-Care Reason For Visit: Painful right total hip replacement Discharge Diagnosis: Revision right anterior total hip replacement Condition on Discharge: Good Activity: Per Instructions section Bathing: Keep incision dry Sexual Activity: Wait until after follow-up appointment Exercise/Sports: Wait until after follow-up appointment Driving/Machine Use: No driving. Weightbearing: Full weightbearing Non-emergency contact: Primary Care Provider and Surgeon Call non-emergency contact if: you have any medication questions, your symptoms worsen, your pain is not controlled, your pain is worsening, your pain is unusual for you, your pain is concerning for you, you have a fever, your tempera ture is above 101, your wound has increased redness, your wound has increased drainage and your wound pain has increased Follow-up/Referrals: PCP,NO [Primary Care Provider] - Diet: Regular Addtl Attending Provider Instructions: ACTIVITY RECOMMENDATIONS: SELF CARE INSTRUCTIONS AFTER TOTAL HIP REPLACEMENT : Direct Anterior Approach Until the incision and soft tissues around your hip have healed, there is a possibility that the hip prosthesis could dislocate. A. Hip flexion ( Up & Down out of chair or steps ) may be difficult. This is normal. B. Numbness in front of the thigh is also normal for a few weeks. C. Use hand rails when walking on stairs. D. Wear low heeled shoes with non-slip soles. E. Be sure that your floors are free of things that could trip you - throw rugs, electrical cords, small objects. Avoid wet and waxed floors, especially with crutches and canes. F. Try to walk several times a day with rest periods between. G. Continue with all the exercises taught to you in the hospital. Again, make walking a part of your daily routine. SPECIAL CARE INSTRUCTIONS: VERY IMPORTANT TO READ AND REVIEW A. You may still be at risk for phlebitis and blood clots. 1. Wear surgical stockings (LOU hose) for 2 weeks after surgery to improve circulation and reduce swelling. 2. Take LOVENOX 40mg daily for 4 weeks or as directed by your doctor. This is your blood thinner. 3. High risk patients may be prescribed a stronger blood thinner if necessary. 4. If you are on Coumadin normally, your family doctor/precision jig grinder should monitor your blood work. Expect a phone call the day of or the day after bloodwork is drawn to adjust your dosage. B. You must take antibiotics before having dental work, bladder, bowel and other surgery. Your doctor will provide you with a permanent card to carry describing precautions. C. Call [facility] if you have a fever, redness or swelling around the incision, cloudy drainage from incision, or sudden increase in pain in your hip, not relieved by your regular pain medication. D. Please call the office at if you have any concerns or questions about your operation or recovery. * YOU MAY SHOWER, NO TUB BATHS UNTIL CLEARED BY YOUR DOCTOR. - Keep an extra close eye on the top portion of your incision. Be sure to keep clean & dry. * WEAR LOU HOSE 20 HOURS PER DAY FOR 2 WEEKS. * YOU MAY PROGRESS FROM A WALKER, TO A CANE, TO INDEPENDENT AT YOUR OWN PACE. * MOST PATIENTS WILL HAVE HOME NURSING FOR THERAPY. IF YOU DECIDE TO DO OUTPATIENT PHYSICAL THERAPY, PLEASE SCHEDULE THIS 3 TIMES PER WEEK. *YENNI incisional vac is a special dressing covering your incision. This dressing provides a sterile dry environment while you are healing. The dressing is to be left in place for 7 days post-operatively. Your home nurse or surgeon will remove. If you develop any redness or blisters or have any questions notify your surgeon immediately. FOLLOW UP VISIT: If appointment is not already scheduled: Please call [facility] to make a follow-up appointment for 2 weeks after your surgery at . Pending Studies at Discharge: No Stand-Alone Forms: My TCHO, Opioid Pain Management, Smoking Cessation Medications and DC Order Prescriptions: New enoxaparin 40 mg/0.4 mL Syringe 40 mg subcut Q24H Qty: 28 RF: 0 acetaminophen 500 mg Tablet 1,000 mg PO Q8 PRN (Reason: Pain\fevers) Qty: 90 RF: 0 oxycodone 5 mg Tablet 5 mg PO Q6H MDD 4 PRN (Reason: pain) Qty: 30 RF: 0 sennosides [Senokot] 8.6 mg Tablet 17.2 mg PO HS PRN (Reason: Constipation) Qty: 30 RF: 0 ondansetron HCl [Zofran] 4 mg tablet 4 mg PO Q6H PRN (Reason: nausea and vomiting) Qty: 30 RF: 0 celecoxib [Celebrex] 100 mg capsule 100 mg PO BID Qty: 60 RF: 0 Continued cholecalciferol (vitamin D3) [Vitamin D3] 2,000 unit Tablet 4,000 unit PO BID RF: 0 finasteride 5 mg Tablet 5 mg PO QPM RF: 0 loratadine [Claritin] 10 mg Tablet 10 mg PO QPM RF: 0 Probiotic 3 billion cell Capsule 3,000 mmu cells PO QPM RF: 0 albuterol sulfate 90 mcg/actuation Hfa Aerosol Inhaler 1 puff INHALATION Q6H PRN (Reason: BREATHING ISSUES) RF: 0 vancomycin 125 mg Capsule 125 mg PO BID RF: 0 Discontinued acetaminophen [Tylenol Extra Strength] 500 mg Tablet 1,000 mg PO Q8 PRN (Reason: pain) Qty: 90 RF: 0 Discharge Orders: Discharge Order (Routine); Ordered 04/09/21 Ordered By: Renny Thurston/Other Patient Handouts: 5 Steps for Eating Healthier, A1C Admission Data Admit Date/Time: 04/08/21 18:43 Attending Provider: Renny Leslie Admit Provider: Renny Leslie Primary Care Provider: PCP,NO Other Interventions: Discharge Summary Assessment (RN) Last Done: 04/09/21 13:02
--- NOTE | 2021-04-29 10:14 | Coding Query ---
A supporting diagnosis is required for the test/procedure performed on this patient in order for us to be reimbursed by the patient's insurance. Please provide a supporting diagnosis for the following test/procedure listed below next to the test name along with your signature. *If there is no additional diagnosis for this patient that would support the following test/procedure please document that below next to the test/procedure. Test(s)/Procedure(s) that require a supporting diagnosis: * 08478 Revise hip joint replacement DIAGNOSIS: Painful total hip prothesis Provider Signature: Renny Leslie Date: ____04/29/21___ Thank you Elvia Tracy [employer] Information Management Once completed, please kindly fax back to [phone] For questions please call [phone] [facility]
== END 2021-04-09 14:44 | disposition home or self-care (01) ==
LOC: ASU 10:31 → 3E 10:31